=== PATIENT | male | born 1990 | race Caucasian/White ===

== ENCOUNTER 2016-12-20 03:30 | Emergency (ER) | payer OTHER ==
[~2016-12-20] VITALS: Ht 172.7 cm; Wt 82.1 kg
[2016-12-20 03:35] VITALS: TEMP 36.8; Ht 172.7 cm; Wt 82.1 kg
[2016-12-20] MEDS ORDERED: KETOROLAC TROMETHAMINE 60 MG/2 ML VIAL IM STA (03:47)
[2016-12-20] MEDS ORDERED: PENI-82 PO (03:49)
[2016-12-20] MEDS ORDERED: PENICILLIN HOME PACK 500MG (4 DOSES)BTL PO ONE (04:00)
[2016-12-20 04:13] VITALS: BP 130/88; PULSE 98; O2SAT 100
--- NOTE | 2016-12-23 20:23 | EMERGENCY ROOM VISIT NOTE ---
ED Visit Note First contact with patient: 03:37 CHIEF COMPLAINT: Toothache HISTORY OF PRESENT ILLNESS: This 26 year old male patient presented to the emergency department with a progressive toothache for past 1 day. The patient believes it is coming from a right upper molar. The pain is now steady and severe and radiates to the face. The patient does not have a dentist appointment set up. They rate their pain a 9/10 and the ibuprofen and Tylenol they have been taking has not relieved the pain. Denies facial swelling or fever. The patient denies any discharge from the mouth. REVIEW OF SYSTEMS: A 6 system review of systems was completed with positives and pertinent negatives listed in the HPI. ALLERGIES: No known allergies MEDICATIONS: Suboxone PMH: History of drug abuse SOCIAL HISTORY: Lives locally PHYSICAL EXAM: Vitals are noted on the nurse's note and reviewed by myself. Vital signs stable. GENERAL: White male, in no acute distress, nondiaphoretic, well-developed well- nourished. Mouth: The right upper first molar tooth is very carious and the gum is swollen and tender around it, without any discharge or signs of an abscess. The remainder of the pharynx and tonsils are without erythema, edema, or exudate. The airway is patent. There is no facial swelling, cervical or submandibular lymphadenopathy. The patient appears uncomfortable and in pain. The patient has overall poor dental hygiene. EARS: External auditory canals clear, tympanic membranes pearly hamilton without erythema or effusion bilaterally. HEART: Regular rate and rhythm without murmur gallop or rub LUNG: Clear to auscultation bilateral ED COURSE: Physical exam and history were performed. Nursing notes and EMR were reviewed. The patient appears to have pain of his right upper molar. He will be given a course of penicillin. He is to follow with her dentist as soon as possible for definitive care. He is on Suboxone and should continue this medication. He may take ibuprofen and Tylenol. He is invited back anytime with new, worsening, or concerning symptoms. Problem List Medical Problems: (1) TOBACCO USE DISORDER Status: Chronic Current/Historical Medications Scheduled Penicillin V Potassium (Veetids), 500 MG PO QID Allergies Coded Allergies: No Known Allergies (Unverified , 12/20/16) Vital Signs Date Time Temp Pulse Resp B/P Pulse Ox O2 Delivery O2 Flow Rate FiO2 12/20/16 04:13 98 16 130/88 100 12/20/16 03:35 36.8 93 16 154/88 100 Room Air Medications Administered Medications (Trade) Dose Ordered Sig/Alethea Route Start Time Stop Time Status Last Admin Dose Admin Ketorolac Tromethamine (Toradol Inj) 60 mg NOW STAT IM 12/20/16 03:47 12/20/16 03:48 DC 12/20/16 04:10 60 MG Penicillin V Potassium (Pen-Vk 500MG Home Pack) 1 homepack UD ONCE PO 12/20/16 04:00 12/20/16 04:01 DC 12/20/16 04:10 1 HOMEPACK Departure Information Impression Primary Impression: Pain, dental Dispostion Home / Self-Care Condition GOOD Prescriptions Penicillin V Potassium (Veetids) 500 Mg Tab 500 MG PO QID for 10 Days, #40 TAB Prov: Franklin Kendall PA-C 12/20/16 Forms HOME CARE DOCUMENTATION FORM, IMPORTANT VISIT INFORMATION Patient Instructions My [facility] Additional Instructions You were seen and evaluated today on an emergency basis only. This is not a substitute for, or an effort to provide, complete comprehensive medical care. It is not possible to recognize and treat all injuries or illnesses in a single emergency department visit. For this reason it is recommended that you followup with a dentist as soon as possible for ongoing care and evaluation. For baseline pain relief you may alternate ibuprofen and acetaminophen every 4 hours for pain control. Take 600 mg ibuprofen (Advil) and then 4 hours later take 1000 mg acetaminophen (Tylenol). Do not take more than 3000 mg acetaminophen in a single day. Take Pen-Vee K 500 mg 4 times daily for the next 10 days You are welcome to return to the emergency department anytime with new, worsening, or concerning symptoms.
== END 2016-12-20 04:14 | disposition home or self-care (01) ==
LOC: C.EDB 03:32 → C.EDC 04:14
DX: K08.89 Other specified disorders of teeth and supporting structures (principal); F17.210 Nicotine dependence, cigarettes, uncomplicated